=== PATIENT | male | born 1940 | race Caucasian/White ===

== ENCOUNTER 2023-08-17 12:03 | Outpatient (CLI) | payer MEDICARE | END 2023-08-17 12:04 | disposition home or self-care (01) | LOC: CSHCT 12:03 | PROVIDERS: ATTEND Internal Medicine Cardiovascular Disease | DX: I48.0 Paroxysmal atrial fibrillation (principal); R91.8 Other nonspecific abnormal finding of lung field; Z95.818 Presence of other cardiac implants and grafts; I25.10 Atherosclerotic heart disease of native coronary artery without angina pectoris; I25.84 Coronary atherosclerosis due to calcified coronary lesion | CPT/HCPCS: 71275; 82565 ==